=== PATIENT | female | born 2000 | race Two or more races ===

== ENCOUNTER 2023-11-04 21:18 | Emergency (ER) | payer OTHER ==
[~2023-11-04] VITALS: Ht 157.5 cm; Wt 70.0 kg
[2023-11-04 21:38] VITALS: BP 118/61; PULSE 76; RESP 17; TEMP 98.3
[2023-11-05 00:19] LABS: APPEARANCE,URINE HAZY (CLEAR); BILIRUBIN,URINE NEGATIVE (NEGATIVE); COLOR,URINE LIGHT YELLOW (YELLOW); GLUCOSE, URINE (UA) NEGATIVE (NEGATIVE); KETONES,URINE NEGATIVE (NEGATIVE); LEUKOCYTE ESTERASE ,URINE LARGE (NEGATIVE); NITRATE,URINE NEGATIVE (NEGATIVE); OCCULT BLOOD,URINE NEGATIVE (NEGATIVE); PROTEIN,URINE NEGATIVE (NEGATIVE); SPECIFIC GRAVITIY, URINE 1.018 (1.003-1.030); UROBILINOGEN,URINE <=1.0 mg/dL (<=1.0)
[2023-11-05 00:36] LABS: BACTERIA,URINE Rare /HPF (None Seen); RBC,URINE None Seen /HPF (0-2); SQUAMOUS EPITHELIAL CELL,UR Moderate /LPF (None Seen)
[2023-11-05 00:44] LABS: HCG,QUAL URINE NEGATIVE (NEGATIVE)
[2023-11-05] MEDS ORDERED: KETOROLAC TROMETHAMINE 30 MG/ML VIAL IM ONE (00:45)
[2023-11-05] MEDS ORDERED: LIDOCAINE 5% TRANSDERMAL PATCH TD ONE (00:45)
[2023-11-05] MEDS ORDERED: CEPHALEXIN MONOHYDRATE 500 MG CAPSULE PO ONE (01:45)
[2023-11-05] MEDS ORDERED: LIDO700A15 TP (01:48)
[2023-11-05] MEDS ORDERED: CEPH-558 PO (01:48)
[2023-11-05] MEDS ORDERED: CYCL-448 PO (01:48)
== END 2023-11-05 02:04 | disposition home or self-care (01) ==
LOC: EMS 21:20
DX: N39.0 Urinary tract infection, site not specified (principal); M54.50 Low back pain, unspecified
CPT/HCPCS: 99284; 81001; 84703; 87086; 87186; 72100; 96372; J1885; 81003